=== PATIENT | male | born 1995 | race Hispanic/Latino ===

== ENCOUNTER 2021-02-19 03:15 | Emergency (ER) | payer OTHER ==
[~2021-02-19] VITALS: Ht 182.9 cm; Wt 88.5 kg
[2021-02-19] MEDS ORDERED: VENTOLIN HFA18 GM INH (03:29)
== END 2021-02-19 03:39 | disposition home or self-care (01) ==
LOC: ED 03:15
DX: J45.909 Unspecified asthma, uncomplicated (principal); Z76.0 Encounter for issue of repeat prescription
CPT/HCPCS: 99281

== ENCOUNTER 2021-05-08 05:19 | Emergency (ER) | payer OTHER ==
[~2021-05-08] VITALS: Ht 182.9 cm; Wt 88.5 kg
[~2021-05-08 05:19] MED LIST: VENTOLIN HFA18 GM INH
[2021-05-08] MEDS ORDERED: PREDNISONE20 MG PO (06:56)
[2021-05-08] MEDS ORDERED: VENTOLIN HFA18 GM INH (06:56)
== END 2021-05-08 07:04 | disposition home or self-care (01) ==
LOC: ED 05:19
DX: J45.901 Unspecified asthma with (acute) exacerbation (principal); Z20.822 Contact with and (suspected) exposure to COVID-19
CPT/HCPCS: 71045; 99285-25; C9803; J7512; U0003

== ENCOUNTER 2021-08-10 01:18 | Emergency (ER) | payer OTHER ==
[~2021-08-10] VITALS: Ht 182.9 cm; Wt 109.3 kg
[~2021-08-10 01:18] MED LIST changes: +PREDNISONE20 MG PO
[2021-08-10] MEDS ORDERED: PREDNISONE20 MG PO (02:05)
== END 2021-08-10 02:34 | disposition home or self-care (01) ==
LOC: ED 01:18
DX: J45.901 Unspecified asthma with (acute) exacerbation (principal)
CPT/HCPCS: 99284; J7512